=== PATIENT | female | born 1955 | race Caucasian/White ===

== ENCOUNTER 2016-09-27 21:54 | Observation (INO) | payer BC ==
[~2016-09-27] VITALS: Ht 154.9 cm; Wt 57.5 kg
[2016-09-27] MEDS ORDERED: BLOOD PRESSURE (22:03)
[2016-09-27 22:36] LABS: BASO # 0.1 (0.0-0.2); BASO % 0.5 % (0.0-2.0); EOS # 0.2 (0.0-0.7); EOS % 2.2 % (0-4.0); GRAN % 72.6 % (42.2-75.2); HEMOGLOBIN 12.2 g/dl (12.5-16.0); LYMPH # 1.6 (1.2-3.4); LYMPH % 16.7 % (20.0-51.0); MEAN CELL VOLUME 99 fl (80.0-100.0); MEAN CORPUSCULAR HEMOGLOBIN 34 pg (27.0-31.0); MEAN CORPUSCULAR HGB CONC 35 g/dl (33.0-37.0); MEAN PLATELET VOLUME 9.9 fl (7.4-10.4); MONO # 0.7 (0.1-0.6); MONO % 7.5 % (1.7-9.3); PLATELET COUNT 199 K/mm3 (130-400); RED BLOOD COUNT 3.56 M/mm3 (4.10-5.30); WHITE BLOOD COUNT 9.7 K/mm3 (4.8-10.8)
[2016-09-27 22:37] LABS: HEMATOCRIT 35.3 % (37.0-47.0)
[2016-09-27 22:40] LABS: PROTHROMBIN TIME 11.6 SECONDS (9.7-12.8)
[2016-09-27 22:53] LABS: ADJUSTED CALCIUM 9.1 mg/dL (8.4-10.2); ALANINE AMINOTRANSFERASE 28 U/L (9-52); ALBUMIN 4.5 gm/dL (3.5-5.0); ALKALINE PHOSPHATASE 68 U/L (50-136); ANION GAP 15 mmol/L (7-16); BILIRUBIN,TOTAL 0.9 mg/dL (0.0-1.0); BLOOD UREA NITROGEN 14 mg/dL (7-17); CALCIUM 9.5 mg/dL (8.4-10.2); CARBON DIOXIDE 24 mmol/L (22-30); CHLORIDE 97 mmol/L (98-107); CREATININE, serum 0.58 mg/dL (0.52-1.25); GLUCOSE 184 mg/dL (74-106); POTASSIUM 3.8 mmol/L (3.4-5.0); SODIUM 135 mmol/L (137-145); TOTAL PROTEIN 7.6 gm/dL (6.4-8.2)
[2016-09-27 23:07] LABS: ACETAMINOPHEN < 10 ug/mL (10-30); SALICYLATE < 1.0 mg/dL
[2016-09-27 23:09] LABS: PROLACTIN 43.3 ng/mL (3.0-18.6)
[2016-09-28 00:50] VITALS: BP 164/89; PULSE 89; TEMP 97.5
[2016-09-28] MEDS ORDERED: TOPROL XL 25MG25 MG PO (01:12)
[2016-09-28] MEDS ORDERED: ZESTRIL 20MG TA20 MG PO (01:13)
[2016-09-28] MEDS ORDERED: ASPIRIN 81M81 MG/TA2 PO (01:14)
[2016-09-28 03:33] VITALS: BP 148/85; PULSE 81; TEMP 99.3
[2016-09-28 07:58] VITALS: BP 160/90; PULSE 81; TEMP 98.4
[2016-09-28 08:03] LABS: BASO % 0.4 % (0.0-2.0); EOS # 0.2 (0.0-0.7); EOS % 2.1 % (0-4.0); GRAN # 6.8 (1.4-6.5); GRAN % 70.6 % (42.2-75.2); LYMPH # 1.7 (1.2-3.4); LYMPH % 17.8 % (20.0-51.0); MEAN CELL VOLUME 99 fl (80.0-100.0); MEAN CORPUSCULAR HGB CONC 34 g/dl (33.0-37.0); MEAN PLATELET VOLUME 10.5 fl (7.4-10.4); MONO # 0.9 (0.1-0.6); MONO % 8.8 % (1.7-9.3); PLATELET COUNT 205 K/mm3 (130-400); RED BLOOD COUNT 3.29 M/mm3 (4.10-5.30); REDCELL DISTRIBUTION WIDTH-CV 12.1 % (11.5-14.5); WHITE BLOOD COUNT 9.6 K/mm3 (4.8-10.8)
[2016-09-28 08:09] LABS: CALCIUM 8.6 mg/dL (8.4-10.2); CREATININE, serum 0.51 mg/dL (0.52-1.25); HEMATOCRIT 32.4 % (37.0-47.0); HEMOGLOBIN 11.1 g/dl (12.5-16.0); MEAN CORPUSCULAR HEMOGLOBIN 34 pg (27.0-31.0); POTASSIUM 3.3 mmol/L (3.4-5.0)
[2016-09-28 10:07] VITALS: BP 146/90; PULSE 69
[2016-09-28 11:43] VITALS: BP 150/78; PULSE 67; TEMP 98.1
[2016-09-28 13:00] VITALS: BP 135/86; PULSE 68; TEMP 98.2
== END 2016-09-28 15:42 | disposition home or self-care (01) ==
LOC: COL.ER 21:54 → MEDICAL 23:35
PROVIDERS: Emergency Medicine; Family Medicine
DX: R56.9 Unspecified convulsions (principal); F10.20 Alcohol dependence, uncomplicated; R73.9 Hyperglycemia, unspecified; I10 Essential (primary) hypertension
CPT/HCPCS: 99222-AI; G0378; J2060; J3411; J3475; J7030